=== PATIENT | female | born 1980 | race Caucasian/White ===

== ENCOUNTER 2018-11-18 22:15 | Emergency (ER) | payer OTHER ==
[~2018-11-18] VITALS: Ht 157.5 cm; Wt 78.9 kg
[2018-11-18 22:20] VITALS: Ht 157.5 cm; Wt 78.9 kg
[2018-11-18 23:59] VITALS: BP 123/75
== END 2018-11-18 23:52 | disposition home or self-care (01) ==
LOC: ED 22:15
DX: J45.901 Unspecified asthma with (acute) exacerbation (principal); J20.9 Acute bronchitis, unspecified; Z90.89 Acquired absence of other organs
CPT/HCPCS: J1885; J7512; J7620; Q0092